=== PATIENT | male | born 1975 | race Caucasian/White ===

== ENCOUNTER 2020-07-19 12:16 | Emergency (ER) | payer OTHER ==
[~2020-07-19 12:16] MED LIST: FIORICET1 EACH PO; FLEXERIL5 MG PO; IBUPROFEN800 MG PO; ONDANSETRON ODT4 MG PO; PREDNISONE 20MG20 MG PO; ROBAXIN750 MG PO; VOLTAREN **OUT50 MG PO
[2020-07-19] MEDS ORDERED: PERMETHRIN CREA60 GM TOP (15:16)
== END 2020-07-19 15:37 | disposition home or self-care (01) ==
LOC: FER 12:16
DX: G44.309 Post-traumatic headache, unspecified, not intractable (principal); B86 Scabies; F17.210 Nicotine dependence, cigarettes, uncomplicated; Z88.8 Allergy status to other drugs, medicaments and biological substances
CPT/HCPCS: J1885